=== PATIENT | male | born 1975 | race Caucasian/White ===

== ENCOUNTER 2017-02-11 00:09 | Inpatient (IN) | payer SELFPAY ==
[2017-02-11] VITALS (10 sets, daily range): BP systolic 117–156; BP diastolic 68–86; PULSE 58–97; RESP 16–67; Ht 175.3 cm; Wt 78.0 kg
[~2017-02-11] VITALS: Ht 175.3 cm; Wt 78.0 kg
[2017-02-11] MEDS ORDERED: SOD CHLORIDE 0.9% 500 ML IV STA (01:23)
[2017-02-11] MEDS ORDERED: METOCLOPRAMIDE 10 MG INJ IV STA (01:23)
[2017-02-11] MEDS ORDERED: morphine 4 MG/ML VIAL IV STA (01:23)
[2017-02-11] MEDS ORDERED: ONDANSETRON 4 MG INJ IV STA (01:23)
[2017-02-11 01:42] LABS: ADD SCAN DIFF NO
[2017-02-11 01:44] LABS: BASOPHILS % 0.4 % (0.0-2.0); EOSINOPHILS # 0.1 10^3/ul (0.0-0.5); EOSINOPHILS % 0.6 % (0.0-7.0); HEMATOCRIT 48.3 % (42.0-52.0); HEMOGLOBIN 17.2 g/dl (14.0-18.0); LYMPHOCYTES % 19.5 % (15.0-51.0); MEAN CORPUSCULAR HEMOGLOBIN 32.1 pg (29.0-33.0); MEAN CORPUSCULAR HGB CONC 35.6 g/dl (32.0-37.0); MEAN CORPUSCULAR VOLUME 90.1 fl (82.0-101.0); MEAN PLATELET VOLUME 9.8 fl (7.4-10.4); MONOCYTE # 0.6 10^3/ul (0.3-0.9); MONOCYTES % 5.8 % (0.0-11.0); NEUTROPHIL # 7.6 10^3/ul (1.6-7.5); NEUTROPHILS % 73.5 % (39.0-77.0); PLATELET COUNT 256 10^3/UL (140-415); RED BLOOD COUNT 5.36 10^6/ul (4.70-6.10); RED CELL DISTRIBUTION WIDTH 12.4 % (11.5-14.5); WHITE BLOOD COUNT 10.4 10^3/ul (4.8-10.8)
[2017-02-11] MEDS ORDERED: hydrALAzine 20 MG INJ IV ONE (02:00)
[2017-02-11 02:02] LABS: PARTIAL THROMBOPLASTIN TIME 28.6 Sec (25.0-35.0); PROTIME 13.2 Sec (12.2-14.2)
[2017-02-11 02:05] LABS: ALANINE AMINOTRANSFERASE 29 IU/L (13-69); ALBUMIN 4.9 g/dl (3.3-4.9); ALKALINE PHOSPHATASE 105 IU/L (42-121); ANION GAP 16 (8-16); ASPARTATE AMINO TRANSFERASE 30 IU/L (15-46); BILIRUBIN,INDIRECT 0.3 mg/dl (0-1.1); BILIRUBIN,TOTAL 0.3 mg/dl (0.2-1.3); BLOOD UREA NITROGEN 13 mg/dl (7-20); CALCIUM 9.8 mg/dl (8.4-10.2); CARBON DIOXIDE 25 mmol/L (21-31); CHLORIDE 106 mmol/L (97-110); CREATININE 0.85 mg/dl (0.61-1.24); GLUCOSE 103 mg/dl (70-220); POTASSIUM 3.6 mmol/L (3.5-5.1); SODIUM 143 mmol/L (135-144); TOTAL PROTEIN 8.4 g/dl (6.1-8.1)
--- NOTE | 2017-02-11 02:07 | ERA ---
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 Patient's blood pressure severely elevated. Patient does have history of high blood pressure, but however patient has not been taking any medications for a few years. Denies any headache. Denies any palpitations. Pain is mild to moderate in intensity. Pressure-like. Substernal. No exacerbating or alleviating factors. Mild nausea. One episode of vomiting nonbilious nonbloody. No other current issues. ROS All systems reviewed and are negative except as per history of present illness. Allergies Allergies: Coded Allergies: No Known Allergy (Unverified , 02/11/17) PMhx/Soc Medical and Surgical Hx: pt denies Surgical Hx Hx Miscellaneous Medical Probl: Yes (hypertension) Hx Alcohol Use: No Hx Substance Use: No Hx Tobacco Use: No Smoking Status: Never smoker Physical Exam Vitals Vital Signs Date Time Temp Pulse Resp B/P Pulse Ox O2 Delivery O2 Flow Rate FiO2 02/11/17 01:28 67 15 192/126 97 02/11/17 00:12 97.3 66 18 183/107 99 Physical Exam Const: [] Head: Atraumatic Eyes: Normal Conjunctiva ENT: Normal External Ears, Nose and Mouth. Neck: Full range of motion..~ No meningismus. Resp: Clear to auscultation bilaterally Cardio: Regular rate and rhythm, no murmurs Abd: Soft, non tender, non distended. Normal bowel sounds Skin: No petechiae or rashes Back: No midline or flank tenderness Ext: No cyanosis, or edema Neur: Awake and alert Psych: Normal Mood and Affect Result Diagram: 02/11/17 0125 Results 24 hrs Laboratory Tests Test 02/11/17 01:25 White Blood Count 10.410^3/ul Red Blood Count 5.3610^6/ul Hemoglobin 17.2g/dl Hematocrit 48.3% Mean Corpuscular Volume 90.1fl Mean Corpuscular Hemoglobin 32.1pg Mean Corpuscular Hemoglobin Concent 35.6g/dl Red Cell Distribution Width 12.4% Platelet Count 30333^3/UL Mean Platelet Volume 9.8fl Neutrophils % 73.5% Lymphocytes % 19.5% Monocytes % 5.8% Eosinophils % 0.6% Basophils % 0.4% Nucleated Red Blood Cells % 0.0/100WBC Neutrophils # 7.610^3/ul Lymphocytes # 2.010^3/ul Monocytes # 0.610^3/ul Eosinophils # 0.110^3/ul Basophils # 0.010^3/ul Nucleated Red Blood Cells # 0.010^3/ul Prothrombin Time 13.2Sec Prothrombin Time Ratio 1.0 INR International Normalized Ratio 1.00 Activated Partial Thromboplast Time 28.6Sec Current Medications Medications (Trade) Dose Ordered Sig/Yvonne Route PRN Reason Start Time Stop Time Status Last Admin Dose Admin Sodium Chloride (NS) 500 ml @ 500 mls/hr Q1H STAT IV 02/11/17 01:23 02/11/17 02:22 02/11/17 01:49 Morphine Sulfate (morphine) 4 mg ONCE STAT IV 02/11/17 01:23 02/11/17 01:38 DC 02/11/17 01:49 Ondansetron HCl (Zofran Inj) 4 mg ONCE STAT IV 02/11/17 01:23 02/11/17 01:38 DC 02/11/17 01:49 Metoclopramide HCl (Reglan) 10 mg ONCE STAT IV 02/11/17 01:23 02/11/17 01:38 DC 02/11/17 01:49 Hydralazine HCl (Apresoline) 20 mg ONCE ONCE IV 02/11/17 02:00 02/11/17 02:01 DC 02/11/17 01:49 Procedures/MDM EKG: Rate/Rhythm: [Normal Sinus Rhythm] QRS, ST, T-waves: [No changes consistent w/ acute ischemia] Impression: [No evidence of ischemia or arrhythmia] Chest X-ray 1V Interpreted by me: Soft Tissue: No acute abnormalities Bones: No acute abnormalities Mediastinum/Cardiac Silhouette/Lungs: [No acute abnormalities] Patient's symptoms are concerning for cardiac cause will require inpatient workup and continuous monitoring. Further w/u for ischemia, arrhythmia, PE or dissection will be deferred to the inpatient team. Accepting Care Team: Current data and ongoing care discussed. Time: 2 AM Primary Provider: Hospitalist Consulting: [XOXOXO] Outstanding Data: none Departure Diagnosis: Primary Impression: Chest pain Qualified Code: R07.9 - Chest pain, unspecified type Condition: Serious JAZMYN MELVIN Feb 11, 2017 02:07
[2017-02-11 02:13] LABS: B-TYPE NATRIURETIC PEPTIDE 26 PG/ML (0-125)
[2017-02-11 02:22] LABS: TROPONIN-I < 0.012 ng/ml (0.00-0.12)
--- NOTE | 2017-02-11 04:15 | RADRPT ---
PROCEDURE: CHEST - 1 VIEW CLINICAL INDICATION: 41-year-old male with chest pain. TECHNIQUE: A single frontal AP upright portable view of the chest was performed. The images were reviewed on a PACS workstation. COMPARISON: None. FINDINGS: The cardiomediastinal silhouette has a normal appearance. There is no evidence for an infiltrate. There is no evidence for congestive heart failure. There is no evidence for pneumothorax. The osseou s structures are intact. IMPRESSION: No evidence for active cardiopulmonary disease. .Edenilson Costa MD, MD Date Time Electronically viewed and signed by .Edenilson Costa MD, on 02/11/2017 04:15 .M/
[2017-02-11] MEDS ORDERED: ONDANSETRON 4 MG INJ IV PRN (04:30)
[2017-02-11] MEDS ORDERED: NACL 0.9% 3 ML SYG IV SCH (04:30)
[2017-02-11] MEDS ORDERED: NITROGLYCERIN (SL) 0.4 MG TAB SL PRN (04:30)
[2017-02-11] MEDS ORDERED: hydrALAzine 20 MG INJ IV PRN (04:30)
[2017-02-11] MEDS ORDERED: morphine 2 MG INJ IV PRN (04:30)
[2017-02-11] MEDS ORDERED: ALBUTEROL/IPRATROPIUM (NEB) 3 ML AMP HHN PRN (04:30)
--- NOTE | 2017-02-11 05:23 | HP ---
DATE OF ADMISSION: 02/11/2017 CHIEF COMPLAINT: Chest pain, nausea, and vomiting. HISTORY OF PRESENT ILLNESS: The patient is a 41-year-old male with a history of hypertension who pr esented to the emergency department complaining of chest pain as well as nausea and vomiting. Sympt oms started several hours prior to arrival to the ER. Chest pain is mainly left-sided which was occ asionally associated with pain on his right shoulder. Denied shortness of breath, palpitation, or d iaphoresis. When he presented to the ER, his blood pressure was 183/107, heart rate 66, respiratory rate 18, tem perature 97.3, oxygen saturation 99% on room air. The patient stated he has not been taking his ant ihypertensives for a long time. He was given Reglan, Zofran, morphine, 500 mL of NS bolus, as well as 20 mg of IV hydralazine while he was in the ER. Blood pressure initially went up but currently i s 140/89. His CBC and CMP are unremarkable. Chest x-ray shows no evidence of acute cardiopulmonary disease. REVIEW OF SYSTEMS: A 12-point review of the brain was performed, negative except as mentioned in HP I. PAST MEDICAL HISTORY: Hypertension. PAST SURGICAL HISTORY: Denies. SOCIAL HISTORY: Denies history of tobacco, alcohol, or illicit drug use. ALLERGIES: NO KNOWN DRUG ALLERGIES. HOME MEDICATIONS: Currently none. PHYSICAL EXAMINATION: VITAL SIGNS: Blood pressure 140/89, heart rate 86, respiratory rate 18, temperature earlier was 97. 3, oxygen saturation 98% on room air. GENERAL: No acute distress, answering questions appropriately, able to speak in full sentences. HEENT: No obvious head deformity. Pupils reactive to light. Extraocular muscles intact. CARDIOVASCULAR: Regular rate and rhythm. No extra sounds. LUNGS: Clear. ABDOMEN: Soft, nontender, nondistended. Positive bowel sounds. EXTREMITIES: No edema. NEUROLOGIC: No focal deficits. LABORATORY: CBC and CMP are unremarkable. IMAGING: Chest x-ray: No acute cardiopulmonary disease. IMPRESSION: 1. Chest pain. 2. Nausea and nonbloody, nonbilious vomiting, likely secondary to elevated blood pressure. 3. Hypertensive urgency, currently blood pressure better controlled. PLAN: The patient's symptom of chest pain as well as nausea and vomiting could be the result of loraine vated blood pressure. Currently, blood pressure is better controlled. He will, however, be ruled o ut for ACS. His first troponin is negative and EKG without sign of ischemia. We will trend his tro ponins. He will be placed on aspirin and antihypertensives with adjustment as needed. We will chec k A1c, fasting lipid, and TSH. We will provide antiemetics as needed. I am not suspecting any shruthi l obstruction as the cause of his nausea and vomiting, but if symptoms persist despite controlling h is blood pressure, then we will obtain imaging. Further workup and management per clinical course. Dictated By: JAZMYN GUY/LIANA Conf#: [id number] DID#: [id number]
[2017-02-11] MEDS: ACETAMINOPHEN 325 MG TAB PO PRN ×2 (07:46→21:49)
[2017-02-11] MEDS: ASPIRIN (EC) 81 MG TAB PO SCH (09:02)
[2017-02-11] MEDS: AMLODIPINE 10 MG TAB PO SCH (09:02)
[2017-02-11] MEDS: METOPROLOL 25 MG TAB PO SCH ×2 (09:02→21:49)
[2017-02-11] MEDS: ENOXAPARIN 40 MG/0.4 ML SYG SC SCH (09:03)
[2017-02-11 11:17] LABS: CREATINE KINASE 118 IU/L (23-200)
[2017-02-11 11:34] LABS: CK-MB 1.15 ng/ml (0.0-2.4); TROPONIN-I < 0.012 ng/ml (0.00-0.12)
[2017-02-11 17:30] LABS: CREATINE KINASE 110 IU/L (23-200)
[2017-02-11 17:42] LABS: CK-MB 0.96 ng/ml (0.0-2.4); TROPONIN-I < 0.012 ng/ml (0.00-0.12)
--- NOTE | 2017-02-11 20:10 | RADRPT ---
Echocardiogram Report Patient Name: RACHEL CLARK Gender: Male Date: 1975 Study Date: 11-Feb-2017 Director University: Rajesh Beltrán [facility] Location: 5558 Ref. Physician: JAZMYN MCKAY Quality: Technically Difficult Study Procedures: Transthoracic echocardiogram with complete 2D, M-Mode, and doppler examination. Indications: Chest Pain. 2D/M Mode Doppler Measurement Value Normal Ranges Measurement Value Normal Ranges LVIDd 2D 4.8 3.5 - 5.6 cm AV Peak [place] 1.4 m/sec LVIDs 2D 3.4 2.1 - 4.1 cm AV Peak PG 8.4 mmHg LVPWd 2D 1.0 0.6 - 1.1 cm LVOT Peak [place] 1.0 m/sec IVSd 2D 1.0 0.6 - 1.1 cm LVOT Peak PG 3.9 mmHg AoR Diam 2D 2.9 2.0 - 3.7 cm MV E Peak [place] 0.9 m/sec EDV 2D 108.5 cm3 MV A Peak [place] 0.7 m/sec ESV 2D 39.0 cm3 MV E/A 1.1 LA Dimen 2D 3.0 2.3 - 4.0 cm MV Decel Time 195 msec MV Decel [place] 4 MV E/A 1.1 Findings Left Ventricle: Normal left ventricular systolic function. Normal left ventricular cavity size. Normal left ventricular wall thickness. Ejection fraction is visually estimated at 55 %. Tissue Doppler/Mitral Doppler indices are within normal limits. Right Ventricle: Normal right ventricular size. Normal right ventricular systolic function. Left Atrium: The left atrium is normal in size. Right Atrium: The right atrium is normal in size. Mitral Valve: Normal appearance of the mitral valve. Mild mitral annular calcification. Trace mitral regurgitation. Aortic Valve: Normal appearance of the aortic valve. No significant aortic stenosis or insufficiency. Tricuspid Valve: Normal appearance of the tricuspid valve. Unable to obtain RVSP due to minimal presence of tricuspid regurgitation. Pulmonic Valve: Pulmonic valve not well visualized. Pericardium: Normal pericardium with no significant pericardial effusion. Aorta: Normal aortic root. IVC: Normal size and normal respiratory collapse consistent with normal right atrial pressure. Conclusions 1.Normal left ventricular systolic function. Normal left ventricular cavity size. Normal left ventricular wall thickness. Ejection fraction is visually estimated at 55 %. Tissue Doppler/Mitral Doppler indices are within normal limits. 2.Normal appearance of the mitral valve. Mild mitral annular calcification. Trace mitral regurgitation. 3.Normal appearance of the aortic valve. No significant aortic stenosis or insufficiency. 4.Normal appearance of the tricuspid valve. Unable to obtain RVSP due to minimal presence of tricuspid regurgitation. Electronically Signed By: Uday Sauceda 11-Feb-2017 20:09:58 -0700 Patient Name: RACHEL CLARK Study Date: 11-Feb-[id number]
[2017-02-12] VITALS (9 sets, daily range): BP systolic 109–130; BP diastolic 67–85; PULSE 48–61; RESP 18–20
[2017-02-12 08:03] LABS: ADD SCAN DIFF NO
[2017-02-12 08:18] LABS: BASOPHILS % 0.5 % (0.0-2.0); EOSINOPHILS # 0.2 10^3/ul (0.0-0.5); EOSINOPHILS % 3.6 % (0.0-7.0); HEMATOCRIT 47.1 % (42.0-52.0); HEMOGLOBIN 16.3 g/dl (14.0-18.0); LYMPHOCYTES # 2.2 10^3/ul (0.8-2.9); LYMPHOCYTES % 35.3 % (15.0-51.0); MEAN CORPUSCULAR HEMOGLOBIN 31.8 pg (29.0-33.0); MEAN CORPUSCULAR HGB CONC 34.6 g/dl (32.0-37.0); MEAN PLATELET VOLUME 9.7 fl (7.4-10.4); MONOCYTE # 0.6 10^3/ul (0.3-0.9); MONOCYTES % 10.2 % (0.0-11.0); NEUTROPHIL # 3.1 10^3/ul (1.6-7.5); NEUTROPHILS % 50.4 % (39.0-77.0); PLATELET COUNT 232 10^3/UL (140-415); RED BLOOD COUNT 5.12 10^6/ul (4.70-6.10); RED CELL DISTRIBUTION WIDTH 12.6 % (11.5-14.5); WHITE BLOOD COUNT 6.2 10^3/ul (4.8-10.8)
[2017-02-12 08:49] LABS: ALBUMIN 4.1 g/dl (3.3-4.9); ALBUMIN/GLOBULIN RATIO 1.41; BILIRUBIN,INDIRECT 0.7 mg/dl (0-1.1); BILIRUBIN,TOTAL 0.7 mg/dl (0.2-1.3); CALCIUM 8.9 mg/dl (8.4-10.2); CHOL/HDL RATIO 3.7 RATIO; CREATININE 0.87 mg/dl (0.61-1.24); MAGNESIUM 2.2 mg/dl (1.7-2.5); POTASSIUM 4.2 mmol/L (3.5-5.1)
[2017-02-12] MEDS: ASPIRIN (EC) 81 MG TAB PO SCH (09:03)
[2017-02-12] MEDS: AMLODIPINE 10 MG TAB PO SCH (09:04)
[2017-02-12] MEDS: METOPROLOL 25 MG TAB PO SCH (09:04)
[2017-02-12 09:16] LABS: THYROID STIMULATING HORMONE 0.563 MIU/L (0.465-4.680)
[2017-02-12] MEDS ORDERED: AMLO2.5T78 PO (10:59)
--- NOTE | 2017-02-12 10:59 | PDOCDIS ---
Discharge Instructions DIAGNOSIS Discharge Diagnosis: Atypical chest pain. Essential hypertension. CONDITION Patient Condition: Stable HOME CARE INSTRUCTIONS: Diet Instructions: Reduced Sodium FOLLOW UP/APPOINTMENTS Appointments Jason Villasenor MD Specialty: Internal Medicine Office Address: [address] [place], [place] [id number] Office OTHER ORDERS: Other Orders: 1. Take medications as per prescription. 2. Regular, preferably low-sodium diet. 3. Resume activities as tolerated. 4. Follow-up with your primary care physician within 1 week. If you do not have a primary care physician, please call Dr. Jason Villasenor's office. RIVER GUARDADO NP Feb 12, 2017 10:59
[2017-02-12] MEDS: ENOXAPARIN 40 MG/0.4 ML SYG SC SCH (11:10)
[2017-02-12] MEDS: ACETAMINOPHEN 325 MG TAB PO PRN (11:11)
--- NOTE | 2017-02-12 12:48 | DS ---
DATE OF ADMISSION: 02/11/2017 DATE OF DISCHARGE: 02/12/2017 FINAL DIAGNOSES: 1. Chest pain. Acute coronary syndrome ruled out. 2. Essential hypertension. 3. Acute viral gastroenteritis. CONSULTANTS: None. HOSPITAL COURSE: This is a 41-year-old male with past medical history of essential hypertension who presented to the emergency department complaining of chest pain as well as nausea and vomiting. The patient's symptoms started several hours prior to the ER visit. The patient verbalized the chest pain was left-sided, which was occasionally associated with pain on his right shoulder. The patient denied any dyspnea, palpitations, or diaphoresis. In the emergency room, the patient was noticed to have a blood pressure of 183/107. Provided the patient's history of present illness and his comorbidities, a clinical decision was made to admit the patient to inpatient setting to have him further evaluated. The patient was admitted to inpatient telemetry floor. Serial troponins were ordered. A 2D echocardiogram was ordered. The patient was started on appropriate antihypertensives. The patient's serial troponins remained negative. The patient's 2D echocardiogram showed preserved left ventricular ejection fraction. The patient was ruled out for any underlying acute coronary syndrome. The patient's chest pain could have been most probably secondary to elevated blood pressure versus musculoskeletal in origin. The patient was started on appropriate antihypertensives including p.r.n. antihypertensives for very high blood pressure readings. The patient was noticed to have some sinus bradycardia. Hence, the patient's beta blockers will be switched to calcium channel blockers prior to discharge. The patient also had multiple episodes of nonbilious, nonbloody vomiting prior to admission. However, the patient's nausea and vomiting were improved. The patient's nausea, vomiting, and other gastrointestinal symptoms could have been most probably secondary to some viral gastroenteritis, which is completely resolved at this time. The patient's hemoglobin A1c was within normal limits. The patient's fasting lipid panel was not bad. The patient had a stable hospital course. The patient is stable to be discharged home. The patient denied any complaints at the time of discharge. DISCHARGE DISPOSITION/PLAN: The patient will be discharged home today. The patient was instructed to take a regular, preferably low sodium diet. He was instructed to take medications as per prescription. He was instructed to resume activities as tolerated. He was instructed to follow up with his primary care physician in 1 week and if he does not have a primary care physician, to please call Dr. Jason Villasenor's office. The patient verbalized understanding of his discharge instructions. CONDITION AT DISCHARGE: Stable. DISCHARGE MEDICATIONS: Amlodipine 2.5 mg p.o. daily. PERTINENT LABORATORY AND DIAGNOSTIC DATA: 1. 2D echocardiogram. Ejection fraction of 55%. Trace mitral regurgitation. No significant aortic stenosis or insufficiency. 2. Chest x-ray. No evidence of active cardiopulmonary disease. 3. Latest CBC: WBC 6.2, hemoglobin 16.3, hematocrit 47.1, platelet count 232. 4. Latest BMP: Sodium 141, potassium 4.2, chloride 108, carbon dioxide 26, anion gap 11, BUN 17, creatinine 0.87, glucose 74, calcium 8.9, magnesium 2.2. 5. Hemoglobin A1c 5.1. 6. Fasting lipid panel: Triglycerides 107, total cholesterol 143, LDL 84, HDL 38. The case and management of this patient was fully discussed with Dr. Cornejo. Approximately 35 minutes was spent on coordinating the discharge on this patient. RIVER CORNEJO MD, AM/LIANA Conf#: [id number] DID#: [id number] MTDD
== END 2017-02-12 14:50 | disposition home or self-care (01) | DRG 313 ==
LOC: E/R 00:09 → MS4 02:05
PROVIDERS: ADMIT Internal Medicine; ATTEND Internal Medicine
DX: R07.89 Other chest pain (principal); I16.0 Hypertensive urgency; A08.4 Viral intestinal infection, unspecified; R11.2 Nausea with vomiting, unspecified
CPT/HCPCS: 36415; 71010; 80053; 80061; 82550; 82553; 83036; 83735; 83880; 84100; 84443; 84484; 85025; 85610; 85730; 93005; 93306; 96374; 96375; J0360; J1650; J2270; J2405; J2765; J7040